=== PATIENT | female | born 1995 | race Two or more races ===

== ENCOUNTER 2017-04-14 00:29 | Emergency (ER) | payer OTHER ==
[~2017-04-14] VITALS: Ht 154.9 cm; Wt 45.4 kg
[2017-04-14 01:15] LABS: BASOPHILS % (AUTO) 0.3 % (0.0-2.0); EOSINOPHILS % (AUTO) 0.6 % (0.0-7.0); HEMOGLOBIN 13.2 G/DL (12.0-16.0); LYMPHOCYTES # (AUTO) 0.8 K/UL (0.8-4.8); MEAN CORPUSCULAR HEMOGLOBIN 27.8 UUG (27.0-31.0); MEAN CORPUSCULAR HGB CONC 33 g/dL (32.0-37.0); MONOCYTES # (AUTO) 0.5 K/UL (0.1-1.30); NEUTROPHILS # (AUTO) 6.3 K/UL (1.8-8.9); NEUTROPHILS % (AUTO) 83.1 % (38.5-71.5); PLATELET COUNT (AUTO) 193 K/UL (150-450); RED BLOOD CELL COUNT(AUTO) 4.76 MIL/UL (4.2-5.4); WHITE BLOOD COUNT (AUTO) 7.6 K/UL (4.0-11.2)
[2017-04-14 01:19] LABS: *URINE HCG, QUAL NEGATIVE (NEGATIVE)
--- NOTE | 2017-04-14 01:26 | NUR ---
Pt ambulated to room with steady gait. Pt c/o several episodes of vomiting for the last 4-5 hours with general abd pain. Pt seen by Dr. Brown. Pt changed into gown. UA collected and sent. IV established, labs drawn and sent. Pt medicated for pain and vomiting, will monitor for effects of medication. Fluid bolus infusing freely to gravity. Pt resting in position of comfort for self, awaiting CT. Family at bedside. Addendum: 04/14/17 at 0129 by MATTHEW Correction: Pt not waiting for CT. A CT was not ordered for this pt. Pt awaiting results of lab
[2017-04-14 01:28] LABS: *BILIRUBIN,URIN 1+ (NEGATIVE); *BLOOD, URINE NEGATIVE (NEGATIVE); *CLARITY,URINE CLEAR (CLEAR); *COLOR,URINE YELLOW (YELLOW); *KETONES,URINE 2+ (NEGATIVE); *PROTEIN,URINE 2+ (NEGATIVE); *UROBILINOGEN,URINE 0.2 E.U./dl (NORMAL); LEUKOCYTE ESTERASE ,URINE NEGATIVE (NEGATIVE); NITRITE, URINE NEGATIVE (NEGATIVE); PH,URINE 5.5 (5.0-8.0); UGLUCOSE NEGATIVE (NEGATIVE)
[2017-04-14 01:30] LABS: BILIRUBIN,DIRECT 0.1 mg/dL (0.0-0.2); BILIRUBIN,TOTAL 0.7 mg/dL (0.2-1.0); POTASSIUM 3.6 mmol/L (3.5-5.1); TOTAL PROTEIN, SERUM 7.4 g/dL (6.4-8.2)
[2017-04-14 01:36] LABS: MUCUS,URINE FEW /LPF (0-FEW); RBC,URINE NONE SEEN /HPF (0-3); SQUAMOUS EPITHELIAL CELL,UR MODERATE /HPF (NONE SEEN); WBC,URINE 0-3 /HPF (0-3)
--- NOTE | 2017-04-14 02:09 | NUR ---
Pt sts pain improved but conts to have nausea. Pt medicated for n/v. Will monitor for effects of medication. Fluid bolus infusing freely to gravity and is almost complete
--- NOTE | 2017-04-14 02:32 | NUR ---
Fluid bolus completed. Pt c/o cont nausea and requested more nausea medication. Dr. Brown notified and pt medicated, will monitor for effects of medication.
--- NOTE | 2017-04-14 02:51 | NUR ---
Pt was laying down and stated she felt better. However pt began heaving once she sat up. Pt declined further medication or to stay. Once the heaving passed pt stated " I think I'm good to go home now." Pt stable for discharge per Dr. Brown. IV dc'd, catheter intact. Drsg applied. No problems noted to site. Pt given ACI. Pt verbalized understanding of dc instructions. Pt ambulated out of ER with steady gait and ride home.
[2017-04-14 03:04] VITALS: BP 104/64
== END 2017-04-14 02:50 | disposition home or self-care (01) ==
LOC: ER 00:34
DX: A08.4 Viral intestinal infection, unspecified (principal); K21.9 Gastro-esophageal reflux disease without esophagitis
CPT/HCPCS: 36415; 83690; 84703; 85025; A4663; C9113; J1170; J2405; J2765; J7030

== ENCOUNTER 2017-07-22 20:32 | Emergency (ER) | payer OTHER ==
[~2017-07-22] VITALS: Ht 154.9 cm; Wt 45.4 kg
[2017-07-22] MEDS ORDERED: IV NORMAL SALINE 1000 ML BAG IV ONE (21:15)
[2017-07-22 21:40] LABS: *BILIRUBIN,URIN NEGATIVE (NEGATIVE); *BLOOD, URINE NEGATIVE (NEGATIVE); *CLARITY,URINE CLEAR (CLEAR); *COLOR,URINE YELLOW (YELLOW); *KETONES,URINE 2+ (NEGATIVE); *PROTEIN,URINE NEGATIVE (NEGATIVE); *UROBILINOGEN,URINE 0.2 E.U./dl (NORMAL); LEUKOCYTE ESTERASE ,URINE NEGATIVE (NEGATIVE); NITRITE, URINE NEGATIVE (NEGATIVE); PH,URINE 5.5 (5.0-8.0); UGLUCOSE NEGATIVE (NEGATIVE)
[2017-07-22 21:41] LABS: *URINE HCG, QUAL NEGATIVE (NEGATIVE)
[2017-07-22 21:44] LABS: BACTERIA,URINE FEW /HPF (NONE SEEN); RBC,URINE 0-3 /HPF (0-3); SQUAMOUS EPITHELIAL CELL,UR FEW /HPF (NONE SEEN); WBC,URINE 0-3 /HPF (0-3)
[2017-07-22] MEDS ORDERED: DEXAMETHASONE 4 MG TABLET PO ONE (21:45)
[2017-07-22] MEDS ORDERED: LIDOCAINE VISCUS 2% 15 ML UDC MM ONE (21:45)
[2017-07-22] MEDS ORDERED: DEXAMETHASONE 4 MG TABLET ONE (21:55)
[2017-07-22] MEDS ORDERED: LIDOCAINE VISCUS 2% 15 ML UDC ONE (21:55)
[2017-07-22] MEDS ORDERED: CIPROFLOXACIN HCL 250 MG TABLET PO ONE (22:30)
--- NOTE | 2017-07-22 22:47 | NUR ---
Patient discharged to home in stable conditon. Written and verbal after care instructions given. Patient verbalizes understanding of instructions.
[2017-07-22] MEDS ORDERED: CIPROFLOXACIN HCL 250 MG TABLET ONE (22:52)
== END 2017-07-22 22:48 | disposition home or self-care (01) ==
LOC: ER 20:32
DX: R19.7 Diarrhea, unspecified (principal); K21.9 Gastro-esophageal reflux disease without esophagitis
CPT/HCPCS: 36415; 81001; 84703; 86403; 87070; 96360; 99284; A4663; J7030; J8540

== ENCOUNTER 2019-03-02 19:08 | Emergency (ER) | payer OTHER ==
[~2019-03-02] VITALS: Ht 154.9 cm; Wt 47.6 kg
--- NOTE | 2019-03-02 19:30 | NUR ---
Pt provided urine sample, sent to lab.
[2019-03-02] MEDS ORDERED: ACETAMINOPHEN ES 500 MG TABLET PO ONE (19:45)
[2019-03-02] MEDS ORDERED: ACETAMINOPHEN ES 500 MG TABLET ONE (19:58)
[2019-03-02] MEDS ORDERED: ONDANSETRON ODT 4 MG TAB.RAPDIS ONE (19:58)
[2019-03-02] MEDS ORDERED: ONDANSETRON ODT 4 MG TAB.RAPDIS SL ONE (20:00)
--- NOTE | 2019-03-02 20:42 | NUR ---
Patient discharged to home in stable conditon. Written and verbal after care instructions given. Patient verbalizes understanding of instructions. Patient A/O x 4 and ambulated out of ER with stable gait.
[2019-03-02 20:44] VITALS: BP 128/64
== END 2019-03-02 20:45 | disposition home or self-care (01) ==
LOC: ER 19:11
DX: J02.8 Acute pharyngitis due to other specified organisms (principal); B97.89 Other viral agents as the cause of diseases classified elsewhere; R11.0 Nausea; R00.2 Palpitations; K21.9 Gastro-esophageal reflux disease without esophagitis
CPT/HCPCS: 36415; 86403; 87070; 93005; A4663; A9150; Q0162

== ENCOUNTER 2020-02-23 11:20 | Emergency (ER) | payer OTHER ==
[~2020-02-23] VITALS: Ht 154.9 cm; Wt 49.9 kg
--- NOTE | 2020-02-23 11:45 | NUR ---
pt is in room #1b. dr Coon evaluated the pt.
[2020-02-23] MEDS ORDERED: IV NORMAL SALINE 1000 ML BAG IV ONE (12:00)
[2020-02-23 12:15] LABS: BASOPHILS % (AUTO) 0.5 % (0.0-2.0); EOSINOPHILS # (AUTO) 0.1 K/uL (0.0-0.7); EOSINOPHILS % (AUTO) 1.1 % (0.0-7.0); HEMATOCRIT 42.4 % (31.2-41.9); HEMOGLOBIN 14.2 g/dL (10.9-14.3); LYMPHOCYTES % (AUTO) 13.8 % (20.5-51.5); MEAN CORPUSCULAR HEMOGLOBIN 28.3 uug (24.7-32.8); MEAN CORPUSCULAR HGB CONC 33 g/dL (32.3-35.6); MEAN CORPUSCULAR VOLUME 84.7 fL (75.5-95.3); MONOCYTES # (AUTO) 0.4 K/uL (2.0-10.0); MONOCYTES % (AUTO) 5.1 % (0.0-11.0); NEUTROPHILS # (AUTO) 5.6 K/uL (1.8-8.9); NEUTROPHILS % (AUTO) 79.5 % (38.5-71.5); PLATELET COUNT (AUTO) 238 K/uL (179-408); RED BLOOD CELL COUNT(AUTO) 5.01 MIL/uL (3.63-4.92); WHITE BLOOD COUNT (AUTO) 7.1 K/uL (3.8-11.8)
[2020-02-23 12:18] LABS: *CLARITY,URINE SLIGHTLY CLOUDY (CLEAR); *COLOR,URINE DARK YELLOW (YELLOW); *KETONES,URINE 1+ (NEGATIVE); *UROBILINOGEN,URINE 0.2 E.U./dl (NORMAL); LEUKOCYTE ESTERASE ,URINE NEGATIVE (NEGATIVE); NITRITE, URINE NEGATIVE (NEGATIVE); PH,URINE 5.5 (5.0-8.0); UGLUCOSE NEGATIVE (NEGATIVE)
[2020-02-23 12:27] LABS: *URINE HCG, QUAL NEG (NEGATIVE)
[2020-02-23 12:35] LABS: BILIRUBIN,DIRECT 0.1 mg/dL (0.0-0.2); BILIRUBIN,TOTAL 0.7 mg/dL (0.2-1.0); CREATININE 0.9 mg/dL (0.6-1.3); POTASSIUM 3.7 mmol/L (3.5-5.1); TOTAL PROTEIN, SERUM 7.8 g/dL (6.4-8.2)
[2020-02-23 12:36] LABS: *BILIRUBIN,URIN 2+ (NEGATIVE); *BLOOD, URINE TRACE (NEGATIVE)
[2020-02-23] MEDS ORDERED: IV NORMAL SALINE 250 ML IV ONE (13:15)
[2020-02-23] MEDS ORDERED: SWABABLE VALVE TRANSFER SET EA MC ONE (13:15)
[2020-02-23] MEDS ORDERED: IOHEXOL 300MG/ML 100 ML INFUS..BTL ONE (13:15)
--- NOTE | 2020-02-23 14:07 | NUR ---
PT WAS D/C'd TO HOME. D/C INSTRUCTIONS GIVEN TOTHE PT BY DR LUBIN.
[2020-02-23 14:08] VITALS: BP 118/68
[2020-02-23 17:05] LABS: BACTERIA,URINE FEW /HPF (NONE SEEN); RBC,URINE 0-3 /HPF (0-3); SQUAMOUS EPITHELIAL CELL,UR FEW /HPF (NONE SEEN); URINE AMORPHOUS URATE MODERATE /HPF; WBC,URINE NONE SEEN /HPF (0-3)
== END 2020-02-23 14:08 | disposition home or self-care (01) ==
LOC: ER 11:20
DX: R19.7 Diarrhea, unspecified (principal); K92.1 Melena; R10.9 Unspecified abdominal pain; Z86.19 Personal history of other infectious and parasitic diseases; K21.9 Gastro-esophageal reflux disease without esophagitis
CPT/HCPCS: 36415; 74177; 80048; 80076; 81001; 83690; 84703; 85025; 96360; 99285; Q9967; A4663; J7030; J7040; J7050